=== PATIENT | male | born 1995 | race Caucasian/White ===

== ENCOUNTER 2016-09-16 00:13 | Emergency (ER) | payer OTHER ==
[2016-09-16 00:43] VITALS: BP 119/105
--- NOTE | 2016-09-16 02:11 | EDM.PDOC ---
ED HPI GENERAL MEDICAL PROBLEM - General Chief Complaint: Head Injury Stated Complaint: HURT PLAYING FOOTBALL Time Seen by Provider: 09/16/16 01:37 Source of Information: Reports: Patient History Limitations: Reports: No Limitations - History of Present Illness INITIAL COMMENTS - FREE TEXT/NARRATIVE: This young man was playing football when he bumped his with a another player. There was no loss of consciousness. His family or friends say he seemed nervous afterwards but was not confused. They thought his pupils might be dilated and he became nauseated. The patient denies any head pain he mentions a scratch across the right clavicular area. - Related Data Allergies Allergy/AdvReac Type Severity Reaction Status Date / Time Sulfa (Sulfonamide Allergy Cannot Verified 09/16/16 00:43 Antibiotics) Remember Home Meds: Home Meds NK [No Known Home Meds] 09/16/16 [History] Past Medical History - Past Health History Medical/Surgical History: Denies Medical/Surgical History Social & Family History - Tobacco Use Smoking Status *Q: Never Smoker - Caffeine Use Caffeine Use: Reports: Soda - Recreational Drug Use Recreational Drug Use: No ED ROS GENERAL - Review of Systems Review Of Systems: ROS reveals no pertinent complaints other than HPI. ED EXAM, HEAD INJURY - Physical Exam Exam: See Below Exam Limited By: No Limitations General Appearance: Alert, WD/WN, No Apparent Distress Head: Atraumatic, Other (Full range of motion of the neck.) Eyes: Bilateral Eye: EOMI, PERRL Ears: Normal External Exam, Normal TMs Nose: Normal Inspection Throat/Mouth: Normal Oropharynx Neck: Non-Tender, Full Range of Motion Respiratory: Lungs Clear Cardiovascular: Regular Rate, Rhythm Course - Vital Signs Last Recorded V/S: Last Vital Signs Temp 36.3 C 09/16/16 00:46 Pulse 86 09/16/16 00:46 Resp 18 09/16/16 00:46 BP 119/105 H 09/16/16 00:46 Pulse Ox 100 09/16/16 00:46 Departure - Departure Time of Disposition: 02:10 Disposition: Home, Self-Care 01 Condition: Fair Clinical Impression: Minor head injury - Discharge Information Instructions: Head Injury, Adult Referrals: PCP,None [Primary Care Provider] - Forms: ED Department Discharge Additional Instructions: This appears to be just a minor head injury with no evidence of a concussion. Please see the attached head injury instructions however. Return to ER or call 911 for any problems.
== END 2016-09-16 02:18 | disposition home or self-care (01) ==
LOC: JP.ED 00:13
DX: S09.90XA Unspecified injury of head, initial encounter (principal); W51.XXXA Accidental striking against or bumped into by another person, initial encounter; Z88.2 Allergy status to sulfonamides; Y93.61 Activity, american tackle football
CPT/HCPCS: 99282